=== PATIENT | male | born 1950 | race Caucasian/White ===

== ENCOUNTER 2017-09-05 09:05 | Emergency (ER) | payer MEDICARE, BC ==
[~2017-09-05] VITALS: Ht 246.4 cm; Wt 84.1 kg
[~2017-09-05 09:05] MED LIST: ADV50250 IH; ALBU8.5H8 IH; CYAN250010 PO; FLUT16SP26 BOTHNARES; FOLI0.8T PO; LANS30CA56 PO; LORA0.5T PO; METR55GE TP; SPIR50TA5 PO; [UNRECOGNIZED DRUG - CODE] TP
[2017-09-05 09:15] VITALS: BP 122/71
== END 2017-09-05 11:47 | disposition home or self-care (01) ==
LOC: ER 09:05
DX: M25.571 Pain in right ankle and joints of right foot (principal); M79.671 Pain in right foot; I10 Essential (primary) hypertension; J45.909 Unspecified asthma, uncomplicated; Z79.899 Other long term (current) drug therapy
CPT/HCPCS: 29515; 73610; 99284

== ENCOUNTER 2018-08-01 08:38 | Emergency (ER) | payer BC, MEDICARE ==
[~2018-08-01] VITALS: Ht 185.4 cm; Wt 84.1 kg
[2018-08-01 08:44] VITALS: BP 127/53
== END 2018-08-01 10:28 | disposition home or self-care (01) ==
LOC: ER 08:38
DX: G89.29 Other chronic pain (principal); M25.572 Pain in left ankle and joints of left foot; R22.42 Localized swelling, mass and lump, left lower limb; I10 Essential (primary) hypertension; J45.909 Unspecified asthma, uncomplicated; Z98.890 Other specified postprocedural states; Z60.2 Problems related to living alone; Z79.899 Other long term (current) drug therapy
CPT/HCPCS: 73610; 99283

== ENCOUNTER → 2022-04-17 | Outpatient (CLI) | payer MEDICARE, BC ==
[~2022-04-17] MED LIST changes: +ALBU8.5H17 IH; -ALBU8.5H8 IH; -FOLI0.8T PO; +FOLI0.8T3 PO
== END | disposition home or self-care (01) ==
LOC: CARD DIAG 08:49
PROVIDERS: ATTEND Internal Medicine Cardiovascular Disease
DX: I08.3 Combined rheumatic disorders of mitral, aortic and tricuspid valves (principal); R01.1 Cardiac murmur, unspecified
CPT/HCPCS: 93306